=== PATIENT | female | born 1965 | race Caucasian/White ===

== ENCOUNTER 2017-03-19 01:58 | Emergency (ER) | payer SELFPAY ==
[2017-03-19] MEDS ORDERED: HYDROXYZINE PAMOATE 50 MG CAPSULE PO ONE (02:16)
[2017-03-19] MEDS ORDERED: PREDNISONE 20 MG TABLET PO ONE (02:16)
--- NOTE | 2017-03-19 02:18 | ER Document Report ---
ED General - General Chief Complaint: Abscess Stated Complaint: ABSCESS Time Seen by Provider: 03/19/17 02:08 Notes: Patient is a 51-year-old female without any past medical history who presents with a rash that is been present for the past 48 hours. Patient states that this started after something "popped" behind her left ear on the area of the mastoid. She states that subsequent that she has developed a rash over her upper extremities and torso. She states she has a history of this on one prior occasion but cannot recall what diagnosis that was. She denies any fever or constitutional symptoms. She does note that the areas of rash are extremely pruritic, constantly irritating. She has not done to try to improve her symptoms. She has not noted anything that worsens her symptoms. She does not note any new exposures. Denies any medication or drug use. She has not seen a primary care doctor regarding today's concerns. - Related Data Allergies/Adverse Reactions: No Known Allergies Allergy (Unverified 03/19/17 02:03) Past Medical History - General Information source: Patient - Social History Smoking Status: Current Every Day Smoker Frequency of alcohol use: None Drug Abuse: None Family History: Reviewed & Not Pertinent Renal/ Medical History: Denies: Hx Peritoneal Dialysis Review of Systems - Review of Systems Notes: Constitutional: Negative for fever. HENT: Negative for sore throat. Eyes: Negative for visual changes. Cardiovascular: Negative for chest pain. Respiratory: Negative for shortness of breath. Gastrointestinal: Negative for abdominal pain, vomiting or diarrhea. Genitourinary: Negative for dysuria. Musculoskeletal: Negative for back pain. Skin: Positive for rash. Neurological: Negative for headaches, weakness or numbness. 10 point ROS negative except as marked above and in HPI. Physical Exam - Vital signs Interpretation: Normal Notes: PHYSICAL EXAMINATION: GENERAL: Appears uncomfortable but no acute distress HEAD: Atraumatic, normocephalic. EYES: Pupils equal round and reactive to light, extraocular movements intact, sclera anicteric, conjunctiva are normal. ENT: nares patent, oropharynx clear without exudates. Moist mucous membranes. NECK: Normal range of motion, supple without lymphadenopathy LUNGS: Breath sounds clear to auscultation bilaterally and equal. No wheezes rales or rhonchi. HEART: Regular rate and rhythm without murmurs ABDOMEN: Soft, nontender, normoactive bowel sounds. No guarding, no rebound. No masses appreciated. EXTREMITIES: Normal range of motion, no pitting or edema. No cyanosis. NEUROLOGICAL: No focal neurological deficits. Moves all extremities spontaneously and on command. PSYCH: Normal mood, normal affect. SKIN: Warm, Dry, normal turgor, there is diffuse areas of raised, erythematous, cracked skin with some flaking of the superficial skin layer starting behind the left ear over the mastoid and then down the left side of the neck, covering the upper area of the torso above the level of the manubrium bilaterally and then over the bilateral upper extremities mostly located to the forearms and hands. There is extensive cracking of the skin over the dorsal surface of the hands bilaterally. Course - Re-evaluation Re-evalutation: 03/19/17 02:15 Patient presents with diffusely raised, erythematous, cracked skin over her bilateral hands, forearms and over her upper chest as well as behind her left ear. There is [place] no evidence of an abscess anywhere. This appears to be more consistent with either severe eczema or another unspecified autoimmune inflammatory condition of the skin. Patient denies any medications. It is not consistent with Bautista-Meño syndrome or TEN. I do not suspect an acute psoriasis is there are no distinct plaques. Will start on steroids and recommend close outpatient dermatologic follow-up. At this time will discharge with return precautions and follow-up recommendations. Verbal discharge instructions given a the bedside and opportunity for questions given. Medication warnings reviewed. Patient is in agreement with this plan and has verbalized understanding of return precautions and the need for primary care follow-up in the next 24-72 hours. Discharge - Discharge Clinical Impression: Rash and nonspecific skin eruption Condition: Good Disposition: HOME, SELF-CARE Additional Instructions: Please take the steroids as prescribed. Follow-up with a spot checker at your earliest ability. Return if you develop fever, persistent vomiting, pass out, or have any other symptoms that are worrisome to you. Prescriptions: Hydroxyzine HCl [Atarax 50 mg Tablet] 50 mg PO Q8HP PRN #30 tablet PRN Reason: Prednisone [Deltasone 20 mg Tablet] 3 tab PO DAILY 5 Days tablet Triamcinolone Acetonide 80 gm TP TID #80 cream.gm.
== END 2017-03-19 02:52 | disposition home or self-care (01) ==
LOC: ER 01:58
DX: R21 Rash and other nonspecific skin eruption (principal); F17.200 Nicotine dependence, unspecified, uncomplicated
CPT/HCPCS: 99282; J7512

== ENCOUNTER 2017-03-27 12:22 | Inpatient (IN) | payer SELFPAY ==
--- NOTE | 2017-03-27 13:21 | ER Document Report ---
ED Skin Rash/Insect Bite/Abscs - General Chief Complaint: Itching Stated Complaint: ITCHY SKIN Time Seen by Provider: 03/27/17 13:06 Mode of Arrival: Ambulatory Information source: Patient Notes: Patient is a 51-year-old female who presents to the ER today for rash to her upper body that began behind both of her ears, worse on the left. Patient states that she was here on February 17, 8 days ago, and was treated for eczema with steroids and steroid cream, anti-itch medication. Patient states that she has only gotten worse since that time, states that now her ears seem to have pus coming out of them. She ran out of steroid cream and has not put anything else on her skin in a few days. She is not taking any other medications. She denies any recent prescription drugs other than These and denies any recent antibiotics any time within the recent past TRAVEL OUTSIDE OF THE [place] IN LAST 30 DAYS: No - Related Data Allergies/Adverse Reactions: No Known Allergies Allergy (Unverified 03/19/17 02:03) Home Medications: Current Home Medications No Home Medications 03/27/17 [History] Past Medical History - General Information source: Patient - Social History Smoking Status: Unknown if Ever Smoked Chew tobacco use (# tins/day): No Frequency of alcohol use: None Drug Abuse: None Family History: Reviewed & Not Pertinent Patient has suicidal ideation: No Patient has homicidal ideation: No Renal/ Medical History: Denies: Hx Peritoneal Dialysis Surgical Hx: Negative - Immunizations Hx Diphtheria, Pertussis, Tetanus Vaccination: Yes Review of Systems - Review of Systems Constitutional: No symptoms reported EENT: No symptoms reported Cardiovascular: No symptoms reported Respiratory: No symptoms reported Gastrointestinal: No symptoms reported Genitourinary: No symptoms reported Female Genitourinary: No symptoms reported Musculoskeletal: No symptoms reported Skin: See HPI Hematologic/Lymphatic: No symptoms reported Neurological/Psychological: No symptoms reported Physical Exam - Vital signs Vitals: Temp Pulse Resp BP Pulse Ox 98.4 F 133 H 22 H 126/80 H 98 03/27/17 12:46 03/27/17 12:46 03/27/17 12:46 03/27/17 12:46 03/27/17 12:46 - Notes Notes: PHYSICAL EXAMINATION: GENERAL: ill appearing, but in no acute distress. HEAD: Atraumatic, normocephalic. EYES: Pupils equal round and reactive to light, extraocular movements intact, sclera anicteric, conjunctiva are normal. ENT: ear canals with erythema and edema, purulent discharge bilaterally, nares patent, oropharynx clear without exudates. Moist mucous membranes. NECK: Normal range of motion, supple without lymphadenopathy LUNGS: CTAB and equal. No wheezes rales or rhonchi. HEART: Regular rate and rhythm without murmurs EXTREMITIES: Normal range of motion, no pitting edema. No cyanosis. NEUROLOGICAL: Cranial nerves grossly intact. Normal sensory/motor exams. PSYCH: Normal mood, normal affect. SKIN: Warm, Dry, normal turgor, bright erythematous, raw skin to entirety of neck, chest, upper back and upper arms, purulent drainage oozing from left ear canal and pinna with raw skin appearance, descending rash that improves onto abdomen and then groin and thighs but then stops, worse around neck and left ear , including eyelid upper and lower of left eye but not conjunctiva or eyeball, no active sloughing of skin, no vesicles Course - Re-evaluation Re-evalutation: 03/27/17 12:19 My attending, Dr. Coughlin did evaluate the patient with me and we brought it hospitalist, Dr. Bell, who believes that this is scalded staphylococcus rash from a possible abscess patient is reporting that was behind the left ear initially before all of this started. Patient has been admitted, started on IV clindamycin, vancomycin and Zosyn. Blood cultures pending at this time. White count of 14.1. Patient was also given IV Benadryl. IV fluids. - Vital Signs Vital signs: Temp Pulse Resp BP Pulse Ox 97.7 F 74 20 95/54 L 97 03/28/17 04:07 03/28/17 04:07 03/28/17 04:07 03/28/17 04:07 03/28/17 04:07 - Laboratory Result Diagrams: 03/28/17 06:40 03/28/17 06:40 Laboratory results interpreted by me: 03/27/17 03/27/17 13:48 13:48 WBC 14.1 H Absolute Neutrophils 10.1 H Glucose 129 H C-Reactive Protein 33.9 H Discharge - Discharge Clinical Impression: Staphylococcal scalded skin syndrome Condition: Stable Disposition: ADMITTED INPATIENT Admitting Provider: Hospitalist Unit Admitted: Medical Floor
[2017-03-27] MEDS ORDERED: NORMAL SALINE 1000 ML 2,000 ML IV ONE (13:38)
[2017-03-27] MEDS ORDERED: DIPHENHYDRAMINE HCL 50 MG/ML VIAL IV ONE (13:38)
[2017-03-27] MEDS ORDERED: DIAZEPAM INJ 10 MG/2 ML DISP.SYRIN IV ONE (13:38)
[2017-03-27] MEDS ORDERED: NORMAL SALINE 1000 ML 1,000 ML IV PRN ×2 (13:40→14:32)
[2017-03-27 14:07] LABS: ABSOLUTE BASOPHILS # (AUTO) 0.1 10^3/uL (0.0-0.2); ABSOLUTE EOSINOPHILS # (AUTO) 0.3 10^3/uL (0.0-0.6); ABSOLUTE LYMPHOCYTES (AUTO) 2.9 10^3/uL (0.5-4.7); ABSOLUTE MONOCYTES (AUTO) 0.8 10^3/uL (0.1-1.4); ABSOLUTE NEUT (AUTO) 10.1 10^3/uL (1.7-8.2); BASOPHILS % (AUTO) 0.5 % (0-2); EOSINOPHILS % (AUTO) 2.1 % (0-6); HEMATOCRIT 44.2 % (36.0-47.0); HEMOGLOBIN 14.7 g/dL (12.0-15.5); HGB HCT DIFFERENCE -0.1; LYMPHOCYTES % (AUTO) 20.2 % (13-45); MEAN CORPUSCULAR HEMOGLOBIN 30.2 pg (27.0-33.4); MEAN CORPUSCULAR HGB CONC 33.3 g/dL (32.0-36.0); MEAN CORPUSCULAR VOLUME 91 fl (80-97); MONOCYTES % (AUTO) 5.7 % (3-13); RED BLOOD COUNT 4.86 10^6/uL (3.72-5.28); SEGMENTED NEUTROPHILS % (AUTO) 71.5 % (42-78); WHITE BLOOD COUNT 14.1 10^3/uL (4.0-10.5)
[2017-03-27] MEDS ORDERED: CLINDAMYCIN 900 MG/D5W RTU 50 ML IV ONE (14:20)
[2017-03-27] MEDS ORDERED: VANCOMYCIN HCL INJ 1000 MG VIAL IV ONE ×2 (14:20→14:24)
[2017-03-27] MEDS ORDERED: PIPERACILLIN/TAZOBACTAM 3.375 GM VIAL IV ONE (14:20)
[2017-03-27] MEDS ORDERED: ONDANSETRON HCL INJ/PF 4 MG/2 ML SDV IV PRN (14:32)
[2017-03-27] MEDS ORDERED: ACETAMINOPHEN 325 MG TABLET PO PRN (14:32)
[2017-03-27] MEDS ORDERED: MAGNESIUM HYDROXIDE SUSP 30 ML UDCUP PO PRN (14:32)
[2017-03-27] MEDS ORDERED: DOCUSATE SODIUM 100 MG CAPSULE PO PRN (14:32)
[2017-03-27] MEDS ORDERED: MAG HYDROX/AL HYDROX/SIMETH SUSP 30 ML UDCUP PO PRN (14:32)
[2017-03-27 14:34] LABS: ALANINE AMINOTRANSFERASE 31 U/L (9-52); ALBUMIN 3.9 g/dL (3.5-5.0); ALKALINE PHOSPHATASE 65 U/L (38-126); ANION GAP 12 (5-19); ASPARTATE AMINO TRANSFERASE 17 U/L (14-36); BILIRUBIN,DIRECT 0.3 mg/dL (0.0-0.4); BILIRUBIN,TOTAL 0.6 mg/dL (0.2-1.3); BLOOD UREA NITROGEN 12 mg/dL (7-20); C-REACTIVE PROTEIN 33.9 mg/L (<10.0); CALCIUM 9.6 mg/dL (8.4-10.2); CARBON DIOXIDE 25 mmol/L (22-30); CHLORIDE 104 mmol/L (98-107); CREATININE RESULT 0.74 mg/dL (0.52-1.25); GLUCOSE 129 mg/dL (75-110); POTASSIUM 4.1 mmol/L (3.6-5.0); SODIUM 140.9 mmol/L (137-145); TOTAL PROTEIN 6.6 g/dL (6.3-8.2)
[2017-03-27 14:54] LABS: ERYTHROCYTE SEDIMENTATION RATE 17 mm/hr (0-30)
[2017-03-27] MEDS ORDERED: FAMOTIDINE INJ/PF 20 MG/2 ML SDV IV ONE (15:00)
[2017-03-27] MEDS ORDERED: ENOXAPARIN SODIUM INJ 40 MG/0.4 ML DISP.SYRIN SUBCUT ONE (16:00)
[2017-03-27] MEDS ORDERED: PIPERACILLIN SODIUM/TAZOBACTAM 4.5 GM in NORMAL SALINE 100 ML IV SCH (16:15)
[2017-03-27] MEDS ORDERED: VANCOMYCIN HCL 0 MG in DEXTROSE 5%-WATER 250 ML IV NR (16:15)
--- NOTE | 2017-03-27 16:28 | PDOC H&P ---
History of Present Illness Admission Date/PCP: 03/27/17 14:32 History of Present Illness: RONA HOUSE is a 51 year old female with no real past medical history who presented for rash to her upper body that began behind both of her ears, worse on the left. Patient states that she was here on February 17, 8 days ago, and was treated for eczema with steroids and steroid cream, anti-itch medication. Patient states that she has only gotten worse since that time, states that now her ears seem to have pus coming out of them. She ran out of steroid cream and has not put anything else on her skin in a few days. She is not taking any other medications. She denies any recent prescription drugs other than These and denies any recent antibiotics any time within the recent past. Patient reports fever, chills, nausea, and burning sensation of her skin. Past Medical History Medical History: None Past Surgical History Past Surgical History: Reports: Tubal Ligation Social History Smoking Status: Current Every Day Smoker Frequency of Alcohol Use: Social Hx Recreational Drug Use: No Hx Prescription Drug Abuse: No - Advance Directive Resuscitation Status: Full Code Surrogate healthcare decision maker:: Kevon Palumbo, brother Family History Family History: CAD, COPD Parental Family History Reviewed: Yes Children Family History Reviewed: Yes Sibling(s) Family History Reviewed.: Yes Medication/Allergy Home Medications: No Home Medications 03/27/17 Allergies/Adverse Reactions: No Known Allergies Allergy (Unverified 03/19/17 02:03) Review of Systems Constitutional: PRESENT: anorexia, chills, fatigue, fever(s), night sweats, weakness. ABSENT: headache(s), weight gain, weight loss Eyes: ABSENT: visual disturbances Ears: PRESENT: as per HPI. ABSENT: hearing changes Cardiovascular: ABSENT: chest pain, dyspnea on exertion, edema, orthropnea, palpitations Respiratory: PRESENT: cough. ABSENT: hemoptysis, sputum Gastrointestinal: PRESENT: nausea, vomiting. ABSENT: abdominal pain, constipation, diarrhea, hematemesis, hematochezia, melena Genitourinary: ABSENT: dysuria, hematuria Musculoskeletal: ABSENT: joint swelling Integumentary: PRESENT: pruritus, rash, wounds Neurological: ABSENT: abnormal gait, abnormal speech, confusion, dizziness, focal weakness, syncope Psychiatric: ABSENT: anxiety, depression, homidical ideation, suicidal ideation Endocrine: PRESENT: flushing. ABSENT: cold intolerance, heat intolerance, polydipsia, polyuria Hematologic/Lymphatic: ABSENT: easy bleeding, easy bruising Physical Exam Vital Signs: Temp Pulse Resp BP Pulse Ox 98.4 F 133 H 22 H 107/72 95 03/27/17 12:46 03/27/17 12:46 03/27/17 12:46 03/27/17 15:37 03/27/17 15:37 General appearance: PRESENT: severe distress, well-developed, well-nourished Head exam: PRESENT: atraumatic, normocephalic Eye exam: PRESENT: conjunctiva pink, EOMI, periorbital swelling - left eye, PERRLA. ABSENT: scleral icterus Ear exam: PRESENT: drainage, other - external auitory canal swelling Mouth exam: PRESENT: dry mucosa, tongue midline Neck exam: PRESENT: lymphadenopathy. ABSENT: JVD, thyromegaly, tracheal deviation Respiratory exam: PRESENT: clear to auscultation roselyn, symmetrical, tachypnea, unlabored. ABSENT: accessory muscle use, crackles, rales, retraction, rhonchi, wheezes Cardiovascular exam: PRESENT: RRR, +S1, +S2. ABSENT: diastolic murmur, gallop, rubs, systolic murmur Pulses: PRESENT: normal dorsalis pedis pul Vascular exam: PRESENT: normal capillary refill GI/Abdominal exam: PRESENT: normal bowel sounds, soft. ABSENT: distended, firm , guarding, mass, organolmegaly, rebound, rigid, tenderness Rectal exam: PRESENT: deferred Extremities exam: PRESENT: full ROM. ABSENT: calf tenderness, clubbing, pedal edema Neurological exam: PRESENT: alert, awake, oriented to person, oriented to place , oriented to time, oriented to situation, CN II-XII grossly intact. ABSENT: motor sensory deficit Psychiatric exam: PRESENT: appropriate affect, normal mood. ABSENT: homicidal ideation, suicidal ideation Skin exam: PRESENT: rash - Macular confluent erythematous rash with crusting on face, neck, back, abdomen spreading to bilateral inner thighs. ABSENT: cyanosis Results Laboratory Results: 03/27/17 03/27/17 03/27/17 13:48 13:48 13:48 WBC 14.1 H Hgb 14.7 Creatinine 0.74 Glucose 129 H Creatine Kinase 32 C-Reactive Protein 33.9 H Assessment & Plan - Diagnosis (1) Sepsis Qualifiers: Sepsis type: Streptococcus, other Qualified Code(s): A40.8 - Other streptococcal sepsis Is this a current diagnosis for this admission?: Yes Plan: Suspect patient has staphylococcal scalded skin syndrome. Will place patient on vancomycin and clindamycin as well as Zosyn pending cultures. Blood cultures have been obtained. Maintain map greater than 65. (2) Staphylococcal scalded skin syndrome Is this a current diagnosis for this admission?: Yes Plan: Initiate vancomycin and clindamycin as well as Zosyn for this patient. Pepcid and Benadryl for itching. Morphine as needed pain. (3) Tobacco abuse Is this a current diagnosis for this admission?: Yes Plan: Encourage cessation - Time Time Spent: 50 to 70 Minutes Medications reviewed and adjusted accordingly: Yes Anticipated discharge: Home
[2017-03-27 16:37] LABS: APPEARANCE,URINE CLEAR; BILIRUBIN,URINE NEGATIVE (NEGATIVE); GLUCOSE, URINE NEGATIVE (NEGATIVE); KETONES,URINE NEGATIVE (NEGATIVE); LEUKOCYTE ESTERASE,URINE NEGATIVE (NEGATIVE); NITRITE,URINE NEGATIVE (NEGATIVE); PROTEIN,URINE NEGATIVE (NEGATIVE); URINE SPECIFIC GRAVITY 1.003; UROBILINOGEN,URINE NEGATIVE mg/dL (<2.0)
[2017-03-27] MEDS: MORPHINE SULFATE 10 MG/ML INJ IV PRN ×2 (17:53→22:18)
[2017-03-27] MEDS: OXYCODONE-ACETAMINOPHEN 5-325 MG TABLET PO PRN (20:17)
[2017-03-27] MEDS: LACTOBACILLUS ACIDOPHILUS 250 MG TAB PO SCH (20:18)
[2017-03-27] MEDS: CIPROFLOXACIN HCL/DEXAMETH OTIC DROP 7.5 ML AU SCH (20:20)
[2017-03-27] MEDS: VANCOMYCIN HCL 1,000 MG in DEXTROSE 5%-WATER 250 ML IV SCH (22:16)
[2017-03-27] MEDS: CLINDAMYCIN 900 MG/D5W RTU 50 ML IV SCH (22:17)
[2017-03-27] MEDS: FAMOTIDINE INJ/PF 20 MG/2 ML SDV IV SCH (22:18)
[2017-03-27] MEDS: DIPHENHYDRAMINE HCL 50 MG/ML VIAL IV PRN (23:37)
[2017-03-28] MEDS: TRIAMCINOLONE ACETONIDE 0.1% OINT 15 GM TOP SCH ×3 (02:37→17:50)
[2017-03-28] MEDS: HYDROCORTISONE 1% OINTMENT 28.35 GM TP SCH ×3 (02:37→17:49)
[2017-03-28] MEDS: MORPHINE SULFATE 10 MG/ML INJ IV PRN ×2 (04:11→14:39)
[2017-03-28] MEDS: OXYCODONE-ACETAMINOPHEN 5-325 MG TABLET PO PRN ×3 (05:14→22:19)
[2017-03-28] MEDS: CLINDAMYCIN 900 MG/D5W RTU 50 ML IV SCH ×3 (05:15→22:20)
[2017-03-28] MEDS: DIPHENHYDRAMINE HCL 50 MG/ML VIAL IV PRN (05:16)
[2017-03-28 07:15] LABS: ABSOLUTE BASOPHILS # (AUTO) 0.1 10^3/uL (0.0-0.2); ABSOLUTE EOSINOPHILS # (AUTO) 0.7 10^3/uL (0.0-0.6); ABSOLUTE LYMPHOCYTES (AUTO) 3.7 10^3/uL (0.5-4.7); ABSOLUTE MONOCYTES (AUTO) 0.8 10^3/uL (0.1-1.4); ABSOLUTE NEUT (AUTO) 5.2 10^3/uL (1.7-8.2); BASOPHILS % (AUTO) 0.6 % (0-2); EOSINOPHILS % (AUTO) 6.4 % (0-6); HEMATOCRIT 37.8 % (36.0-47.0); HEMOGLOBIN 12.7 g/dL (12.0-15.5); HGB HCT DIFFERENCE 0.3; LYMPHOCYTES % (AUTO) 35.3 % (13-45); MEAN CORPUSCULAR HEMOGLOBIN 31.1 pg (27.0-33.4); MEAN CORPUSCULAR HGB CONC 33.6 g/dL (32.0-36.0); MEAN CORPUSCULAR VOLUME 93 fl (80-97); MONOCYTES % (AUTO) 8.1 % (3-13); RED BLOOD COUNT 4.09 10^6/uL (3.72-5.28); RED CELL DISTRIBUTION WIDTH 13.1 % (11.5-14.0); SEGMENTED NEUTROPHILS % (AUTO) 49.6 % (42-78); WHITE BLOOD COUNT 10.4 10^3/uL (4.0-10.5)
[2017-03-28 07:30] LABS: ANION GAP 10 (5-19); BLOOD UREA NITROGEN 10 mg/dL (7-20); CALCIUM 8.8 mg/dL (8.4-10.2); CARBON DIOXIDE 23 mmol/L (22-30); CHLORIDE 111 mmol/L (98-107); CREATININE RESULT 0.77 mg/dL (0.52-1.25); GLUCOSE 93 mg/dL (75-110); POTASSIUM 4.3 mmol/L (3.6-5.0); SODIUM 143.6 mmol/L (137-145)
[2017-03-28] MEDS ORDERED: DIAZEPAM INJ 10 MG/2 ML DISP.SYRIN IV ONE (10:00)
--- NOTE | 2017-03-28 10:06 | PDOC PROGRESS REPORT ---
Subjective Progress Note for:: 03/28/17 Subjective:: Patient had some nausea but this improved with Pepcid. Patient reports that her rash still march and itches. She does report she feels somewhat better. Patient denies chest pain, shortness of breath, abdominal pain, vomiting, fevers , chills, diarrhea, constipation, headache, new onset weakness. Physical Exam Vital Signs: Temp Pulse Resp BP Pulse Ox 97.7 F 74 20 95/54 L 97 03/28/17 04:07 03/28/17 04:07 03/28/17 04:07 03/28/17 04:07 03/28/17 04:07 Intake & Output 03/27/17 03/28/17 03/29/17 06:59 06:59 06:59 Intake Total 600 Output Total 2150 Balance -1550 Weight 68.4 kg Exam: General: Awake alert and oriented x3, no acute respiratory distress HEENT: AT/NC, PERRL, EOMI, oropharynx is moist, pink, no scleral icterus, no conjunctival injection Neck: No JVD, trachea midline Chest: Prolonged expiratory phase, clear to auscultation bilaterally, no wheezes rhonchi or rales CV: Regular rate and rhythm, normal S1 and S2, no murmur, rub, or gallop Abdomen: Soft, nontender to palpation, nondistended, active bowel sounds; no rebound, rigidity, or guarding Extremities: No cyanosis, clubbing or edema Neuro: Cranial nerves II through XII are grossly intact without focal deficits; awake alert and oriented x3 Psych: Normal mood and affect Skin: Erythematous on diffuse macular papular rash left periorbital, cervical, back, anterior chest, and inner thighs Results Laboratory Results: 03/28/17 06:40 03/28/17 06:40 03/28/17 03/28/17 06:40 06:40 WBC 10.4 RBC 4.09 Hgb 12.7 Hct 37.8 MCV 93 MCH 31.1 MCHC 33.6 RDW 13.1 Plt Count 285 Seg Neutrophils % 49.6 Lymphocytes % 35.3 Monocytes % 8.1 Eosinophils % 6.4 H Basophils % 0.6 Absolute Neutrophils 5.2 Absolute Lymphocytes 3.7 Absolute Monocytes 0.8 Absolute Eosinophils 0.7 H Absolute Basophils 0.1 Sodium 143.6 Potassium 4.3 Chloride 111 H Carbon Dioxide 23 Anion Gap 10 BUN 10 Creatinine 0.77 Est GFR ( Amer) > 60 Est GFR (Non-Af Amer) > 60 Glucose 93 Calcium 8.8 Assessment & Plan - Diagnosis (1) Sepsis Qualifiers: Sepsis type: Streptococcus, other Qualified Code(s): A40.8 - Other streptococcal sepsis Is this a current diagnosis for this admission?: Yes Plan: Suspect patient has staphylococcal scalded skin syndrome or a secondarily infected dermatitis. Will place patient on vancomycin and clindamycin. Blood cultures have been obtained. Maintain map greater than 65. (2) Staphylococcal scalded skin syndrome Is this a current diagnosis for this admission?: Yes Plan: Rash is beginning to peel somewhat, but there is a negative Nikolesky sign. No bullae. Currently, my biggest concern is for this. I did discuss this with Dermatology at [facility] and they felt this was a dermatits with secondary infection. Pepcid and Benadryl for itching. Morphine as needed pain. On vancomycin and clindamycin day #2 (3) Tobacco abuse Is this a current diagnosis for this admission?: Yes Plan: Encourage cessation - Time Time Spent with patient: 25-34 minutes Medications reviewed and adjusted accordingly: Yes
[2017-03-28] MEDS: FAMOTIDINE INJ/PF 20 MG/2 ML SDV IV SCH ×2 (10:41→22:20)
[2017-03-28] MEDS: LACTOBACILLUS ACIDOPHILUS 250 MG TAB PO SCH ×2 (10:41→17:48)
[2017-03-28] MEDS: CIPROFLOXACIN HCL/DEXAMETH OTIC DROP 7.5 ML AU SCH ×2 (10:42→17:50)
[2017-03-28] MEDS: VANCOMYCIN HCL 1,000 MG in DEXTROSE 5%-WATER 250 ML IV SCH ×2 (10:45→22:20)
[2017-03-28] MEDS: ENOXAPARIN SODIUM INJ 40 MG/0.4 ML DISP.SYRIN SUBCUT SCH (11:02)
[2017-03-28] MEDS ORDERED: METHYLPREDNISOLONE INJ 40 MG/1 ML SDV IV ONE (12:00)
[2017-03-28] MEDS: METHYLPREDNISOLONE INJ 40 MG/1 ML SDV IV SCH (22:20)
[2017-03-29] MEDS: OXYCODONE-ACETAMINOPHEN 5-325 MG TABLET PO PRN ×4 (02:58→21:01)
[2017-03-29] MEDS: CLINDAMYCIN 900 MG/D5W RTU 50 ML IV SCH ×3 (06:07→21:00)
[2017-03-29] MEDS: METHYLPREDNISOLONE INJ 40 MG/1 ML SDV IV SCH (06:07)
[2017-03-29] MEDS: DIPHENHYDRAMINE HCL 50 MG/ML VIAL IV PRN (06:14)
[2017-03-29] MEDS: MORPHINE SULFATE 10 MG/ML INJ IV PRN (06:14)
[2017-03-29 06:42] LABS: ABSOLUTE LYMPHOCYTES (AUTO) 0.9 10^3/uL (0.5-4.7); ABSOLUTE MONOCYTES (AUTO) 0.1 10^3/uL (0.1-1.4); BASOPHILS % (AUTO) 0.2 % (0-2); EOSINOPHILS % (AUTO) 0.1 % (0-6); HEMATOCRIT 35.3 % (36.0-47.0); HEMOGLOBIN 11.9 g/dL (12.0-15.5); HGB HCT DIFFERENCE 0.4; LYMPHOCYTES % (AUTO) 10.3 % (13-45); MEAN CORPUSCULAR HEMOGLOBIN 31.1 pg (27.0-33.4); MEAN CORPUSCULAR HGB CONC 33.8 g/dL (32.0-36.0); MEAN CORPUSCULAR VOLUME 92 fl (80-97); MONOCYTES % (AUTO) 0.9 % (3-13); RED BLOOD COUNT 3.83 10^6/uL (3.72-5.28); RED CELL DISTRIBUTION WIDTH 13.1 % (11.5-14.0); SEGMENTED NEUTROPHILS % (AUTO) 88.5 % (42-78); WHITE BLOOD COUNT 9.1 10^3/uL (4.0-10.5)
[2017-03-29 06:48] LABS: ANION GAP 10 (5-19); BLOOD UREA NITROGEN 9 mg/dL (7-20); CALCIUM 9.3 mg/dL (8.4-10.2); CARBON DIOXIDE 23 mmol/L (22-30); CHLORIDE 109 mmol/L (98-107); CREATININE RESULT 0.53 mg/dL (0.52-1.25); GLUCOSE 140 mg/dL (75-110); POTASSIUM 4.4 mmol/L (3.6-5.0); SODIUM 142.2 mmol/L (137-145)
[2017-03-29] MEDS: LACTOBACILLUS ACIDOPHILUS 250 MG TAB PO SCH ×2 (09:27→16:49)
[2017-03-29] MEDS: PREDNISONE 20 MG TABLET PO SCH (09:27)
[2017-03-29] MEDS: CIPROFLOXACIN HCL/DEXAMETH OTIC DROP 7.5 ML AU SCH ×2 (09:28→17:09)
[2017-03-29] MEDS: FAMOTIDINE INJ/PF 20 MG/2 ML SDV IV SCH ×2 (09:28→21:00)
[2017-03-29] MEDS: HYDROCORTISONE 1% OINTMENT 28.35 GM TP SCH ×2 (09:29→17:09)
[2017-03-29] MEDS: TRIAMCINOLONE ACETONIDE 0.1% OINT 15 GM TOP SCH ×2 (09:29→17:09)
[2017-03-29] MEDS: ENOXAPARIN SODIUM INJ 40 MG/0.4 ML DISP.SYRIN SUBCUT SCH (09:31)
[2017-03-29] MEDS: DIAZEPAM 5 MG TABLET PO PRN ×2 (09:33→17:09)
[2017-03-29] MEDS: VANCOMYCIN HCL 1,000 MG in DEXTROSE 5%-WATER 250 ML IV SCH ×2 (09:40→17:08)
[2017-03-29] MEDS ORDERED: DOXYCYCLINE HYCLATE 100 MG TABLET PO SCH (10:00)
--- NOTE | 2017-03-29 17:55 | PDOC PROGRESS REPORT ---
Subjective Progress Note for:: 03/29/17 Subjective:: Overall the patient states that she is feeling much better. She states that her rash is improving and that the pain in her ears and from her rash is improving as well. She has had no fever chills overnight. No chest pain, shortness of breath or heart palpitations. No nausea or vomiting. Her appetite is improving. No abdominal pain or diarrhea. No dysuria, frequency or hematuria. Physical Exam Vital Signs: Temp Pulse Resp BP Pulse Ox 97.8 F 65 16 110/72 97 03/29/17 07:49 03/29/17 07:49 03/29/17 07:49 03/29/17 07:49 03/29/17 07:49 Intake & Output 03/28/17 03/29/17 03/30/17 06:59 06:59 06:59 Intake Total 600 1650 Output Total 2150 3600 Balance -1550 -1950 Weight 68.4 kg 65.6 kg General appearance: PRESENT: no acute distress, well-developed, well-nourished Head exam: PRESENT: atraumatic, normocephalic Eye exam: PRESENT: conjunctiva pink, EOMI, PERRLA. ABSENT: scleral icterus Mouth exam: PRESENT: moist, tongue midline Respiratory exam: PRESENT: clear to auscultation roselyn. ABSENT: rales, rhonchi, wheezes Cardiovascular exam: PRESENT: RRR. ABSENT: diastolic murmur, rubs, systolic murmur GI/Abdominal exam: PRESENT: normal bowel sounds, soft. ABSENT: distended, guarding, mass, organolmegaly, rebound, tenderness Rectal exam: PRESENT: deferred Extremities exam: PRESENT: full ROM. ABSENT: calf tenderness, clubbing, pedal edema Neurological exam: PRESENT: alert, awake, oriented to person, oriented to place , oriented to time, oriented to situation, CN II-XII grossly intact. ABSENT: motor sensory deficit Psychiatric exam: PRESENT: appropriate affect, normal mood. ABSENT: homicidal ideation, suicidal ideation Skin exam: PRESENT: other - She still has significant rash over her chest arms upper thighs and abdomen. Her left ear and face seems to be resolving. Results Laboratory Results: 03/29/17 06:00 03/29/17 06:00 03/29/17 03/29/17 06:00 06:00 WBC 9.1 RBC 3.83 Hgb 11.9 L Hct 35.3 L MCV 92 MCH 31.1 MCHC 33.8 RDW 13.1 Plt Count 301 Seg Neutrophils % 88.5 H Lymphocytes % 10.3 L Monocytes % 0.9 L Eosinophils % 0.1 Basophils % 0.2 Absolute Neutrophils 8.0 Absolute Lymphocytes 0.9 Absolute Monocytes 0.1 Absolute Eosinophils 0.0 Absolute Basophils 0.0 Sodium 142.2 Potassium 4.4 Chloride 109 H Carbon Dioxide 23 Anion Gap 10 BUN 9 Creatinine 0.53 Est GFR ( Amer) > 60 Est GFR (Non-Af Amer) > 60 Glucose 140 H Calcium 9.3 Assessment & Plan - Diagnosis (1) Staphylococcal scalded skin syndrome Is this a current diagnosis for this admission?: Yes Plan: Continue IV clindamycin and IV vancomycin. She is on a probiotic at this point. She is improving. She will also continue steroids. I am going to stop her IV Solu-Medrol and place her on p.o. prednisone today. (2) Dermatitis Plan: We will change her to oral steroids today and see how she does. (3) Tobacco abuse Is this a current diagnosis for this admission?: Yes Plan: Certainly would be in her best interest at this point to quit smoking. (4) Sepsis Qualifiers: Sepsis type: Streptococcus, other Qualified Code(s): A40.8 - Other streptococcal sepsis Is this a current diagnosis for this admission?: Yes Plan: Ruled out. I do not believe the patient had a septic picture. Certainly she had a significant rash with superimposed infection. She had mild leukocytosis but had been on steroids as an outpatient. She was not febrile or hypotensive. (5) Leukocytosis Plan: Likely secondary to steroids. - Time Time Spent with patient: 25-34 minutes - Inpatient Certification Medical Necessity: Need for IV Antibiotics, Other - The patient needs close monitoring in the hospital. She has a significant rash with superimposed infection requiring parenteral antibiotics and steroids. Timing of disposition will be determined by her clinical course.
[2017-03-30] MEDS: VANCOMYCIN HCL 1,000 MG in DEXTROSE 5%-WATER 250 ML IV SCH ×2 (02:02→09:34)
[2017-03-30] MEDS: OXYCODONE-ACETAMINOPHEN 5-325 MG TABLET PO PRN ×4 (02:02→21:15)
[2017-03-30] MEDS: CLINDAMYCIN 900 MG/D5W RTU 50 ML IV SCH (05:04)
[2017-03-30] MEDS: DIAZEPAM 5 MG TABLET PO PRN ×3 (05:05→21:15)
[2017-03-30] MEDS: DIPHENHYDRAMINE HCL 50 MG/ML VIAL IV PRN (05:05)
[2017-03-30 06:13] LABS: ABSOLUTE BASOPHILS # (AUTO) 0.1 10^3/uL (0.0-0.2); ABSOLUTE MONOCYTES (AUTO) 0.9 10^3/uL (0.1-1.4); ABSOLUTE NEUT (AUTO) 11.3 10^3/uL (1.7-8.2); BASOPHILS % (AUTO) 0.4 % (0-2); HEMATOCRIT 32.5 % (36.0-47.0); HGB HCT DIFFERENCE 0.5; MEAN CORPUSCULAR HEMOGLOBIN 31.1 pg (27.0-33.4); MEAN CORPUSCULAR HGB CONC 33.8 g/dL (32.0-36.0); MEAN CORPUSCULAR VOLUME 92 fl (80-97); MONOCYTES % (AUTO) 5.8 % (3-13); RED BLOOD COUNT 3.53 10^6/uL (3.72-5.28); RED CELL DISTRIBUTION WIDTH 13.6 % (11.5-14.0); SEGMENTED NEUTROPHILS % (AUTO) 73.8 % (42-78); WHITE BLOOD COUNT 15.3 10^3/uL (4.0-10.5)
[2017-03-30 06:41] LABS: ANION GAP 9 (5-19); BLOOD UREA NITROGEN 12 mg/dL (7-20); CARBON DIOXIDE 24 mmol/L (22-30); CHLORIDE 112 mmol/L (98-107); CREATININE RESULT 0.62 mg/dL (0.52-1.25); GLUCOSE 107 mg/dL (75-110); POTASSIUM 3.9 mmol/L (3.6-5.0); SODIUM 144.7 mmol/L (137-145)
[2017-03-30] MEDS: ENOXAPARIN SODIUM INJ 40 MG/0.4 ML DISP.SYRIN SUBCUT SCH (09:26)
[2017-03-30] MEDS: LACTOBACILLUS ACIDOPHILUS 250 MG TAB PO SCH ×2 (09:29→17:50)
[2017-03-30] MEDS: CIPROFLOXACIN HCL/DEXAMETH OTIC DROP 7.5 ML AU SCH ×2 (09:29→17:52)
[2017-03-30] MEDS: PREDNISONE 20 MG TABLET PO SCH (09:30)
[2017-03-30] MEDS: TRIAMCINOLONE ACETONIDE 0.1% OINT 15 GM TOP SCH ×2 (09:31→17:51)
[2017-03-30] MEDS: FAMOTIDINE INJ/PF 20 MG/2 ML SDV IV SCH ×2 (09:31→21:14)
[2017-03-30] MEDS: HYDROCORTISONE 1% OINTMENT 28.35 GM TP SCH ×2 (09:31→17:51)
--- NOTE | 2017-03-30 09:58 | PDOC PROGRESS REPORT ---
Subjective Progress Note for:: 03/30/17 Subjective:: This morning the patient tells me that she had a very difficult night. She states that about 10 PM last night she began to develop crampy abdominal pain and distention. She feels quite bloated. This morning she had a large loose stool. She states she continues to have crampy abdominal pain and just feels sick. She states she also felt like she had some fever and chills overnight. She has had no chest pain, shortness of breath or heart palpitations. No cough or upper respiratory symptoms. No dysuria, frequency or hematuria. In regards to her skin she states that her rash continues to improve. She states she is having some pain around her ears but otherwise greatly improved. Physical Exam Vital Signs: Temp Pulse Resp BP Pulse Ox 98.4 F 60 18 110/63 100 03/30/17 07:52 03/30/17 07:52 03/30/17 07:52 03/30/17 07:52 03/30/17 07:52 Intake & Output 03/29/17 03/30/17 03/31/17 06:59 06:59 06:59 Intake Total 1650 7374 Output Total 3600 2500 Balance -1950 4874 Weight 65.6 kg 65.7 kg General appearance: PRESENT: no acute distress, well-developed, well-nourished, other - She does look as if she does not feel well this morning Head exam: PRESENT: atraumatic, normocephalic Eye exam: PRESENT: conjunctiva pink, EOMI, PERRLA. ABSENT: scleral icterus Mouth exam: PRESENT: moist, tongue midline Respiratory exam: PRESENT: clear to auscultation roselyn. ABSENT: rales, rhonchi, wheezes Cardiovascular exam: PRESENT: RRR. ABSENT: diastolic murmur, rubs, systolic murmur GI/Abdominal exam: PRESENT: distended, hyperactive bowel sounds, soft, tenderness. ABSENT: guarding, rebound, rigid Rectal exam: PRESENT: deferred Extremities exam: PRESENT: full ROM. ABSENT: calf tenderness, clubbing, pedal edema Musculoskeletal exam: PRESENT: ambulatory Neurological exam: PRESENT: alert, awake, oriented to person, oriented to place , oriented to time, oriented to situation, CN II-XII grossly intact. ABSENT: motor sensory deficit Psychiatric exam: PRESENT: appropriate affect, normal mood. ABSENT: homicidal ideation, suicidal ideation Skin exam: PRESENT: other - She continues to look as if she has a sunburn with a fine rash. There is no open areas or weeping. The rash on her face and ear has almost totally resolved. Results Laboratory Results: 03/30/17 05:39 03/30/17 05:39 03/30/17 03/30/17 05:39 05:39 WBC 15.3 H RBC 3.53 L Hgb 11.0 L Hct 32.5 L MCV 92 MCH 31.1 MCHC 33.8 RDW 13.6 Plt Count 297 Seg Neutrophils % 73.8 Lymphocytes % 20.0 Monocytes % 5.8 Eosinophils % 0.0 Basophils % 0.4 Absolute Neutrophils 11.3 H Absolute Lymphocytes 3.0 Absolute Monocytes 0.9 Absolute Eosinophils 0.0 Absolute Basophils 0.1 Sodium 144.7 Potassium 3.9 Chloride 112 H Carbon Dioxide 24 Anion Gap 9 BUN 12 Creatinine 0.62 Est GFR ( Amer) > 60 Est GFR (Non-Af Amer) > 60 Glucose 107 Calcium 9.0 Magnesium 2.0 Assessment & Plan - Diagnosis (1) Staphylococcal scalded skin syndrome Is this a current diagnosis for this admission?: Yes Plan: Today I am going to stop her parenteral antibiotics. Her IV vancomycin and clindamycin will be stopped. She will be placed on p.o. clindamycin. (2) Dermatitis Plan: She was transitioned to p.o. prednisone yesterday. Continue 60 mg daily. (3) Abdominal pain Plan: The patient is having crampy abdominal pain and states she had a loose stool this morning.I will test her stool for C. difficile. We will follow-up with those results. Also due to her abdominal distention we will obtain an abdominal film. (4) Tobacco abuse Is this a current diagnosis for this admission?: Yes Plan: Certainly would be in her best interest to quit smoking. (5) Sepsis Qualifiers: Sepsis type: Streptococcus, other Qualified Code(s): A40.8 - Other streptococcal sepsis Is this a current diagnosis for this admission?: Yes Plan: Ruled out. I do not believe the patient had a septic picture. Certainly she had a significant rash with superimposed infection. She had mild leukocytosis but had been on steroids as an outpatient. She was not febrile or hypotensive. (6) Leukocytosis Plan: The patient has been on high-dose steroids. However she does have significant worsening today crampy abdominal pain and loose stool. Hopefully she will not develop further diarrhea. I am going to test her stool for Clostridium difficile. We are going to transition her to oral antibiotics for her skin infection will see how she does today in follow-up with these results. Her worsening leukocytosis could certainly be due to the steroids she has been receiving. However the patient states that she felt as if she had fever and shaking chills overnight. I will repeat a CBC this morning. (7) Anemia Plan: The patient has had a precipitous drop in hemoglobin. This is likely secondary to hemodilution. I will repeat H&H this morning just to make sure it is not dropped further in light of her worsening abdominal pain. She will have a CBC drawn in the morning. - Time Time Spent with patient: 25-34 minutes - Inpatient Certification Medical Necessity: Other - Inpatient hospitalization remains necessary. I would like to successfully transition the patient over to an oral regimen of antibiotics and steroids prior to discharge. This patient does not have good outpatient follow-up. [facility] Also the patient is developing abdominal pain today and has some distention and loose stools. This needs to be looked into prior to discharge.
[2017-03-30 10:02] LABS: CREATININE RESULT 0.67 mg/dL (0.52-1.25)
[2017-03-30 10:17] LABS: ABSOLUTE LYMPHOCYTES (AUTO) 3.3 10^3/uL (0.5-4.7); ABSOLUTE MONOCYTES (AUTO) 0.9 10^3/uL (0.1-1.4); ABSOLUTE NEUT (AUTO) 10.8 10^3/uL (1.7-8.2); BASOPHILS % (AUTO) 0.2 % (0-2); HEMATOCRIT 35.1 % (36.0-47.0); HEMOGLOBIN 11.6 g/dL (12.0-15.5); HGB HCT DIFFERENCE -0.3; MEAN CORPUSCULAR HEMOGLOBIN 30.7 pg (27.0-33.4); MEAN CORPUSCULAR HGB CONC 33.1 g/dL (32.0-36.0); MEAN CORPUSCULAR VOLUME 93 fl (80-97); RED BLOOD COUNT 3.79 10^6/uL (3.72-5.28); RED CELL DISTRIBUTION WIDTH 13.5 % (11.5-14.0); SEGMENTED NEUTROPHILS % (AUTO) 71.8 % (42-78); WHITE BLOOD COUNT 15.1 10^3/uL (4.0-10.5)
[2017-03-30] MEDS ORDERED: ONDANSETRON HCL INJ/PF 4 MG/2 ML SDV IV PRN (10:30)
--- NOTE | 2017-03-30 10:59 | RADIOLOGY REPORT (SQ) ---
EXAM DESCRIPTION: ACUTE ABDOMEN SERIES COMPLETED DATE/TIME: 03/30/2017 10:27 am REASON FOR STUDY: abdominal pain COMPARISON: None. NUMBER OF VIEWS: Three views. TECHNIQUE: Frontal chest, supine abdomen and upright abdomen radiographic images acquired. LIMITATIONS: None. FINDINGS: CHEST: Lungs clear of infiltrates. FREE AIR: None. No abnormal gas collections. BOWEL GAS PATTERN: Nonobstructive pattern. No dilated loops or air fluid levels. CALCIFICATIONS: No suspicious calcifications. HARDWARE: None in the abdomen. SOFT TISSUES: No gross mass or suggestion of organomegaly. BONES: No acute fracture. No worrisome bone lesions. OTHER: No other significant finding. IMPRESSION: NO RADIOGRAPHIC EVIDENCE FOR ACUTE ABDOMINAL DISEASE. TECHNICAL DOCUMENTATION: JOB ID: [id number] [employer]- All Rights Reserved
[2017-03-30] MEDS ORDERED: MAGNESIUM HYDROXIDE SUSP 30 ML UDCUP PO PRN (11:00)
[2017-03-30] MEDS ORDERED: MAG HYDROX/AL HYDROX/SIMETH SUSP 30 ML UDCUP PO PRN (11:00)
[2017-03-30] MEDS ORDERED: CLINDAMYCIN HCL 150 MG CAPSULE PO SCH (12:00)
[2017-03-30] MEDS: CLINDAMYCIN HCL 150 MG CAPSULE PO SCH ×2 (13:22→17:51)
[2017-03-31] MEDS: CLINDAMYCIN HCL 150 MG CAPSULE PO SCH ×2 (01:15→06:59)
[2017-03-31] MEDS: ENOXAPARIN SODIUM INJ 40 MG/0.4 ML DISP.SYRIN SUBCUT SCH (10:49)
[2017-03-31] MEDS: CIPROFLOXACIN HCL/DEXAMETH OTIC DROP 7.5 ML AU SCH (10:49)
[2017-03-31] MEDS: TRIAMCINOLONE ACETONIDE 0.1% OINT 15 GM TOP SCH (10:50)
[2017-03-31] MEDS: OXYCODONE-ACETAMINOPHEN 5-325 MG TABLET PO PRN (10:50)
[2017-03-31] MEDS: HYDROCORTISONE 1% OINTMENT 28.35 GM TP SCH (10:50)
[2017-03-31] MEDS: LACTOBACILLUS ACIDOPHILUS 250 MG TAB PO SCH (10:51)
[2017-03-31] MEDS: FAMOTIDINE INJ/PF 20 MG/2 ML SDV IV SCH (10:52)
[2017-03-31] MEDS: PREDNISONE 20 MG TABLET PO SCH (10:52)
--- NOTE | 2017-03-31 11:47 | PDOC DISCHARGE SUMMARY ---
General - Admit/Disc Date/PCP Admission Date/Primary Care Provider: 03/27/17 14:32 She will establish care at the [facility]. Discharge Date: 03/31/17 - Discharge Diagnosis (1) Staphylococcal scalded skin syndrome Is this a current diagnosis for this admission?: Yes Summary: Improved. She was maintained on 900 mg of IV clindamycin and IV vancomycin. She was successfully transitioned over to p.o. clindamycin the day before discharge. She is significantly improved. (2) Dermatitis Summary: She will be given a prescription for triamcinolone cream. (3) Abdominal pain Summary: Likely secondary to antibiotics. The patients pain is much improved on the day of discharge. (4) Tobacco abuse Is this a current diagnosis for this admission?: Yes Summary: She is encouraged to quit smoking. (5) Sepsis Is this a current diagnosis for this admission?: Yes Summary: I do not believe she had a septic picture at the time of admission. She certainly had a significant rash with superimposed infection. She had mild leukocytosis but had also been on steroids as an outpatient. She was not febrile or hypotensive. (6) Leukocytosis Summary: Likely secondary to high-dose steroids. (7) Anemia Summary: The patient had a precipitous drop in hemoglobin after admission likely secondary to hemodilution. Her hemoglobin is stable on the day of discharge. - Additional Information Resuscitation Status: Full Code Discharge Diet: Regular Discharge Activity: Activity As Tolerated, Balance Activity w/Rest, Slowly Increase Activity Home Medications: Ciprofloxacin HCl/Dexameth [Ciprodex Otic Suspension 7.5 ml Bottle] 1 drop AU BID bottle 03/31/17 Clindamycin HCl 450 mg PO Q6H #84 capsule 03/31/17 Prednisone See Protocol PO DAILY #21 tablet 03/31/17 Triamcinolone Acetonide [Aristocort 0.1% Ointment] 1 applic TOP BID #1 tube History of Present Illness History of Present Illness: RONA HOUSE is a 51 year old female who presented to the emergency room with worsening rash Hospital Course Hospital Course: She had been treated as an outpatient 8 days prior to admission for eczema with steroids and steroid cream as well as anti-itch medication. The patient continued to worsen. She reported fever and chills at home and a burning sensation on her skin. The admitting physician suspected staphylococcal scalded skin syndrome and admitted the patient to the hospital and placed her on high-dose IV clindamycin and vancomycin. Blood cultures were obtained which remained negative. Initially there were some concerns that she may be developing sepsis but I do believe as mentioned above this is been ruled out. She also was started on high-dose steroids for her underlying dermatitis. Over the next several days the patient greatly improved. She was transitioned over to an oral regimen and was stable. She was kept in the hospital an additional day due to concerns that she may be developing diarrhea. She had some abdominal pain and a loose stool but no larry diarrhea. On the day of discharge she is feeling quite well. She is going to establish care at the [facility]. I have consulted discharge planning for medication assistance. At this point maximum hospital benefits been reached. The patient will be discharged home today in stable condition Physical Exam Vital Signs: Temp Pulse Resp BP Pulse Ox 97.5 F 63 18 133/79 H 97 03/31/17 07:16 03/31/17 07:16 03/31/17 07:16 03/31/17 07:16 03/31/17 07:16 Intake & Output 03/30/17 03/31/17 04/01/17 06:59 06:59 06:59 Intake Total 7374 1930 Output Total 2500 3100 Balance 4874 -1170 Weight 65.7 kg 65.6 kg General appearance: PRESENT: no acute distress, well-developed, well-nourished Head exam: PRESENT: atraumatic, normocephalic Eye exam: PRESENT: conjunctiva pink, EOMI, PERRLA. ABSENT: scleral icterus Ear exam: PRESENT: normal external ear exam Mouth exam: PRESENT: moist, tongue midline Neck exam: ABSENT: carotid bruit, JVD, lymphadenopathy, thyromegaly Respiratory exam: PRESENT: clear to auscultation roselyn. ABSENT: rales, rhonchi, wheezes Cardiovascular exam: PRESENT: RRR. ABSENT: diastolic murmur, rubs, systolic murmur Pulses: PRESENT: normal dorsalis pedis pul GI/Abdominal exam: PRESENT: normal bowel sounds, soft. ABSENT: distended, guarding, mass, organolmegaly, rebound, tenderness Rectal exam: PRESENT: deferred Extremities exam: PRESENT: full ROM. ABSENT: calf tenderness, clubbing, pedal edema Neurological exam: PRESENT: alert, awake, oriented to person, oriented to place , oriented to time, oriented to situation, CN II-XII grossly intact. ABSENT: motor sensory deficit Psychiatric exam: PRESENT: appropriate affect, normal mood. ABSENT: homicidal ideation, suicidal ideation Skin exam: PRESENT: other - Rash is improving. Results Laboratory Results: 03/30/17 09:46 03/30/17 09:46 Impressions: Acute Abdomen Series 03/30/17 00:00 IMPRESSION: NO RADIOGRAPHIC EVIDENCE FOR ACUTE ABDOMINAL DISEASE. Qualifiers PATEINT BEING DISCHARGED WITH ANY OF THE FOLLOWING DIAGNOSIS?: No Plan Time Spent: Greater than 30 Minutes
[2017-03-31 11:52] VITALS: BP 144/49
== END 2017-03-31 12:33 | disposition home or self-care (01) | DRG 596 ==
LOC: ER 12:22 → EH 14:32 → UNDOADMIN 15:18 → 2N 16:58 → 4W 03-28 09:43
DX: L00 Staphylococcal scalded skin syndrome (principal); L49.0 Exfoliation due to erythematous condition involving less than 10 percent of body surface; F17.210 Nicotine dependence, cigarettes, uncomplicated; D72.829 Elevated white blood cell count, unspecified; T38.0X5A Adverse effect of glucocorticoids and synthetic analogues, initial encounter; D64.9 Anemia, unspecified; L30.9 Dermatitis, unspecified; Z79.899 Other long term (current) drug therapy; Z83.6 Family history of other diseases of the respiratory system; Z82.49 Family history of ischemic heart disease and other diseases of the circulatory system
CPT/HCPCS: 36415; 74022; 80048; 80053; 80202; 81001; 82550; 82565; 83036; 83735; 85025; 85652; 86140; 87040; 87493; 96361; 96374; 96375; 99284; J1200; J1650; J2270; J2405; J2543; J2920; J3360; J3370; J3490; J7030; J7060; J7512; S0028

== ENCOUNTER 2017-04-16 19:43 | Emergency (ER) | payer SELFPAY ==
[2017-04-16] MEDS ORDERED: ASPIRIN 81 MG TABLET, CHEWABLE PO ONE (20:27)
--- NOTE | 2017-04-16 20:27 | ER Document Report ---
ED Medical Screen (RME) - General Chief Complaint: Skin Problem Stated Complaint: POSSIBLE RASH Time Seen by Provider: 04/16/17 20:14 TRAVEL OUTSIDE OF THE [place] IN LAST 30 DAYS: No - HPI Notes: 04/16/17 20:22 Patient is a 51-year-old female who presents the ED with a generalized rash that is pruritic since her discharge from the hospital on March 31. Patient was discharged on steroids. Patient states that the rash continues to be the same without any improvement and is also in her scalp. Patient is also complaining of chest tightness 1 day without any injury. Patient is not sure of anything that worsens the pain or improves it. She states that she does have a cough that is semi-productive. Denies any headache , fever, head injury, neck pain, URI, sore throat, palpitations, syncope, cough , shortness of breath, wheeze, dyspnea, abdominal pain, nausea/vomiting, urinary retention, dysuria, hematuria. I have treated and performed a rapid initial assessment of this patient. A comprehensive ED assessment and evaluation of the patient, analysis of test results and completion of medical decision making process will be conducted by additional ED providers. PHYSICAL EXAMINATION: GENERAL: Well-appearing, well-nourished and in no acute distress. Chest: non-tender. equal rise/fall. LUNGS: Breath sounds clear to auscultation bilaterally and equal. No wheezes rales or rhonchi. HEART: Regular rate and rhythm without murmurs, rubs, gallops. PSYCH: Normal mood, normal affect. SKIN: widespread generalized rash, dry, flaky, somewhat consistent with a dermatitis and possible seborrheic dermatitis of the scalp. rash is warm, no purulent discharge or abscess noted. - Related Data Allergies/Adverse Reactions: No Known Allergies Allergy (Unverified 03/19/17 02:03) Past Medical History Renal/ Medical History: Denies: Hx Peritoneal Dialysis Psychiatric Medical History: Denies: Hx Depression Past Surgical History: Reports: Hx Tubal Ligation - Immunizations Hx Diphtheria, Pertussis, Tetanus Vaccination: Yes History of Influenza Vaccine for 03/2017 - 08/2017 Season: Refused Physical Exam - Vital signs Vitals: Temp Pulse Resp BP Pulse Ox 98.3 F 93 16 119/75 98 04/16/17 19:57 04/16/17 19:57 04/16/17 19:57 04/16/17 19:57 04/16/17 19:57 Course - Vital Signs Vital signs: Temp Pulse Resp BP Pulse Ox 98.3 F 93 16 119/75 98 04/16/17 19:57 04/16/17 19:57 04/16/17 19:57 04/16/17 19:57 04/16/17 19:57
[2017-04-16 21:09] LABS: ABSOLUTE EOSINOPHILS # (AUTO) 0.5 10^3/uL (0.0-0.6); ABSOLUTE LYMPHOCYTES (AUTO) 3.2 10^3/uL (0.5-4.7); ABSOLUTE MONOCYTES (AUTO) 0.6 10^3/uL (0.1-1.4); ABSOLUTE NEUT (AUTO) 3.3 10^3/uL (1.7-8.2); BASOPHILS % (AUTO) 0.4 % (0-2); EOSINOPHILS % (AUTO) 6.9 % (0-6); HEMATOCRIT 40.6 % (36.0-47.0); HEMOGLOBIN 13.7 g/dL (12.0-15.5); HGB HCT DIFFERENCE 0.5; LYMPHOCYTES % (AUTO) 41.9 % (13-45); MEAN CORPUSCULAR HEMOGLOBIN 30.9 pg (27.0-33.4); MEAN CORPUSCULAR HGB CONC 33.9 g/dL (32.0-36.0); MEAN CORPUSCULAR VOLUME 91 fl (80-97); MONOCYTES % (AUTO) 7.4 % (3-13); RED BLOOD COUNT 4.45 10^6/uL (3.72-5.28); RED CELL DISTRIBUTION WIDTH 13.7 % (11.5-14.0); SEGMENTED NEUTROPHILS % (AUTO) 43.4 % (42-78); WHITE BLOOD COUNT 7.7 10^3/uL (4.0-10.5)
[2017-04-16 21:25] LABS: BILIRUBIN,URINE NEGATIVE (NEGATIVE); GLUCOSE, URINE NEGATIVE (NEGATIVE); KETONES,URINE NEGATIVE (NEGATIVE); LEUKOCYTE ESTERASE,URINE SMALL (NEGATIVE); NITRITE,URINE POSITIVE (NEGATIVE); PROTEIN,URINE NEGATIVE (NEGATIVE); UROBILINOGEN,URINE NEGATIVE mg/dL (<2.0)
[2017-04-16 21:26] LABS: APPEARANCE,URINE SLIGHTLY HAZY
[2017-04-16 21:27] LABS: ALANINE AMINOTRANSFERASE 34 U/L (9-52); ALBUMIN 4.1 g/dL (3.5-5.0); ALKALINE PHOSPHATASE 70 U/L (38-126); ANION GAP 10 (5-19); ASPARTATE AMINO TRANSFERASE 24 U/L (14-36); BILIRUBIN,DIRECT 0.3 mg/dL (0.0-0.4); BILIRUBIN,TOTAL 0.4 mg/dL (0.2-1.3); BLOOD UREA NITROGEN 11 mg/dL (7-20); CALCIUM 9.9 mg/dL (8.4-10.2); CARBON DIOXIDE 24 mmol/L (22-30); CHLORIDE 108 mmol/L (98-107); CREATINE KINASE < 20 U/L (30-135); CREATININE RESULT 0.63 mg/dL (0.52-1.25); GLUCOSE 89 mg/dL (75-110); POTASSIUM 4.4 mmol/L (3.6-5.0); SODIUM 142.4 mmol/L (137-145); TOTAL PROTEIN 6.5 g/dL (6.3-8.2)
--- NOTE | 2017-04-16 21:36 | RADIOLOGY REPORT (SQ) ---
EXAM DESCRIPTION: CHEST SINGLE VIEW COMPLETED DATE/TIME: 04/16/2017 9:28 pm REASON FOR STUDY: chest pain, cough COMPARISON: 03/30/2017. EXAM PARAMETERS: NUMBER OF VIEWS: One view. TECHNIQUE: Single frontal radiographic view of the chest acquired. RADIATION DOSE: NA LIMITATIONS: None. FINDINGS: LUNGS AND PLEURA: No opacities, masses or pneumothorax. No pleural effusion. MEDIASTINUM AND HILAR STRUCTURES: No masses. Contour normal. HEART AND VASCULAR STRUCTURES: Heart normal in size. Normal vasculature. BONES: No acute findings. HARDWARE: None in the chest. OTHER: No other significant finding. IMPRESSION: NO ACUTE RADIOGRAPHIC FINDING IN THE CHEST. TECHNICAL DOCUMENTATION: JOB ID: [id number]
[2017-04-16 21:38] LABS: CREATINE KINASE MB 0.27 ng/mL (<4.55)
[2017-04-16 21:39] LABS: TROPONIN I < 0.012 ng/mL
[2017-04-16] MEDS ORDERED: CEFTRIAXONE 1 GM/D5W RTU 1 GM/50 ML RTUPB IV ONE (21:54)
[2017-04-16] MEDS ORDERED: METHYLPREDNISOLONE INJ 125 MG/2 ML SDV IV ONE (21:54)
[2017-04-16] MEDS ORDERED: FAMOTIDINE INJ/PF 20 MG/2 ML SDV IV ONE (22:31)
[2017-04-16] MEDS ORDERED: CIPROFLOXACIN HCL 500 MG TABLET PO ONE (22:32)
--- NOTE | 2017-04-16 22:49 | ER Document Report ---
ED General - General Chief Complaint: Skin Problem Stated Complaint: POSSIBLE RASH Time Seen by Provider: 04/16/17 20:14 Mode of Arrival: Ambulatory Information source: Patient Notes: Patient presents complaining of painful burning rash to scalp, trunk and extremities. Patient states that she was recently admitted earlier this month for this problem. Patient states she got home on steroids and antibiotics and that her rash had resolved, although after stopping the steroid medication her rash started to return 4 days ago. Patient complains of chest tightness that she said started around 4:00 yesterday. Patient denies any difficulty breathing. Patient without any personal history of any heart disease. Patient denies any fever. Patient does complain of diarrhea that she has been having for the past week. Patient denies any blood in her stool. Patient does acknowledge that this rash symptoms have been causing her a lot of stress and she is uncertain if her chest pain symptoms may be related to stress or the fact that the rash is painful. TRAVEL OUTSIDE OF THE [place] IN LAST 30 DAYS: No - HPI Onset: Just prior to arrival - 4 days (rash returned) Onset/Duration: Worse Quality of pain: Burning Pain Level: 3 Associated symptoms: Chest pain, Diarrhea. denies: Body/muscle aches, Nonproductive cough, Productive cough, Fever, Nausea, Vomiting, Shortness of breath, Sore throat Exacerbated by: Denies Relieved by: Denies Similar symptoms previously: Yes Recently seen / treated by doctor: Yes - Related Data Allergies/Adverse Reactions: No Known Allergies Allergy (Unverified 03/19/17 02:03) Past Medical History - General Information source: Patient - Social History Smoking Status: Current Every Day Smoker Chew tobacco use (# tins/day): No Frequency of alcohol use: None Drug Abuse: None Lives with: Family Family History: Reviewed & Not Pertinent Patient has suicidal ideation: No Patient has homicidal ideation: No - Medical History Medical History: Negative - Past Medical History Cardiac Medical History: Denies: Hx Heart Attack, Hx Hypertension Renal/ Medical History: Denies: Hx Peritoneal Dialysis Skin Medical History: Denies Hx Eczema Psychiatric Medical History: Denies: Hx Depression Past Surgical History: Reports: Hx Tubal Ligation - Immunizations Hx Diphtheria, Pertussis, Tetanus Vaccination: Yes Review of Systems - Review of Systems Constitutional: Recent illness - staph skin syndrome earlier this month. denies : Fever EENT: No symptoms reported Cardiovascular: Chest pain. denies: Syncope, Dizziness Respiratory: No symptoms reported. denies: Cough, Short of breath Gastrointestinal: Diarrhea. denies: Abdominal pain, Nausea, Vomiting, Black stools, Rectal bleeding Genitourinary: No symptoms reported. denies: Dysuria, Flank pain Female Genitourinary: No symptoms reported Musculoskeletal: No symptoms reported. denies: Back pain Skin: Rash Hematologic/Lymphatic: No symptoms reported Neurological/Psychological: No symptoms reported. denies: Headaches Physical Exam - Vital signs Vitals: Temp Pulse Resp BP Pulse Ox 98.3 F 93 16 119/75 98 04/16/17 19:57 04/16/17 19:57 04/16/17 19:57 04/16/17 19:57 04/16/17 19:57 - General General appearance: Appears well, Alert, Anxious In distress: None - HEENT Head: Normocephalic, Atraumatic Eyes: Normal Conjunctiva: Normal Nasal: Normal Mouth/Lips: Normal. No: Angioedema Mucous membranes: Normal Neck: Normal - Respiratory Respiratory status: No respiratory distress Chest status: Tender Breath sounds: Normal Chest palpation: Tender - Cardiovascular Rhythm: Regular Heart sounds: S1 appreciated, S2 appreciated Murmur: No - Abdominal Inspection: Normal Distension: No distension Bowel sounds: Normal Tenderness: Nontender Organomegaly: No organomegaly - Back Back: Normal, Nontender. No: CVA tenderness - Extremities General upper extremity: Normal inspection, Normal ROM General lower extremity: Normal inspection, Normal ROM - Neurological Neuro grossly intact: Yes Cognition: Normal Naeem Coma Scale Eye Opening: Spontaneous [place] Coma Scale Verbal: Oriented [place] Coma Scale Motor: Obeys Commands [place] Coma Scale Total: 15 - Psychological Associated symptoms: Anxious - Skin Skin Temperature: Warm Skin Moisture: Dry Skin Color: Erythema - Erythematous rash distributed to trunk, extremities, most concentrated to bilateral wrist and hand area. No peeling of skin to fingertips Skin irregularity: Erythema, Rash Location of irregularity: Other - Patient with scaling, cracked skin to the palms of hands and fingers Irregularity with: Tenderness, Inflammation. negative: Swelling, Warmth Course - Re-evaluation Re-evalutation: 04/16/17 21:[address] Garcia regarding patient presentation and diagnostic test results. Advises 2 week course of steroid medication, outpatient follow-up with primary doctor as well as dermatology and having patient finish her course of antibiotics as previously prescribed. Also agrees with plan to treat patient 's UTI. 04/16/17 22:44 Continues to complain of pruritus. Patient very anxious about what she feels like is acid draining around the posterior aspect of her scalp causing her head to get wet. Patient without any objective weeping skin lesions to scalp or neck area. Patient advised of exam findings of scalp. Discussed worsening symptoms that patient should return immediately for. Patient advised that a consultation will be placed with the rn case management to help assist patient getting a more timely follow-up as well as possible dermatology referral. 04/16/17 22:46 The patient has atypical chest pain as the patient's chest pain is not suggestive of pulmonary embolus, cardiac ischemia, aortic dissection, or other serious etiology. Given the extremely low risk of these diagnoses for the test in evaluation for these possibilities does not appear to be indicated at this time. Patient has been instructed to return if the symptoms worsen or change in any way. Patient's heart score of 1. - Vital Signs Vital signs: Temp Pulse Resp BP Pulse Ox 98.3 F 93 18 108/76 95 04/16/17 19:57 04/16/17 19:57 04/16/17 23:01 04/16/17 23:01 04/16/17 23:01 - Laboratory Result Diagrams: 04/16/17 20:43 04/16/17 20:43 Laboratory results interpreted by me: 04/16/17 04/16/17 04/16/17 20:43 20:43 20:57 Eosinophils % 6.9 H Chloride 108 H Creatine Kinase < 20 L Urine Nitrite POSITIVE H Ur Leukocyte Esterase SMALL H 04/16/17 23:33 Labs- Entire Visit 04/16/17 04/16/17 04/16/17 20:43 20:43 20:43 WBC 7.7 RBC 4.45 Hgb 13.7 Hct 40.6 MCV 91 MCH 30.9 MCHC 33.9 RDW 13.7 Plt Count 314 Seg Neutrophils % 43.4 Lymphocytes % 41.9 Monocytes % 7.4 Eosinophils % 6.9 H Basophils % 0.4 Absolute Neutrophils 3.3 Absolute Lymphocytes 3.2 Absolute Monocytes 0.6 Absolute Eosinophils 0.5 Absolute Basophils 0.0 Sodium 142.4 Potassium 4.4 Chloride 108 H Carbon Dioxide 24 Anion Gap 10 BUN 11 Creatinine 0.63 Est GFR ( Amer) > 60 Est GFR (Non-Af Amer) > 60 Glucose 89 Calcium 9.9 Total Bilirubin 0.4 Direct Bilirubin 0.3 Indirect Bilirubin Not Reportable Neonat Total Bilirubin Not Reportable AST 24 ALT 34 Alkaline Phosphatase 70 Creatine Kinase < 20 L CK-MB (CK-2) 0.27 Troponin I < 0.012 Total Protein 6.5 Albumin 4.1 Urine Color Urine Appearance Urine pH Ur Specific [place] Urine Protein Urine Glucose (UA) Urine Ketones Urine Blood Urine Nitrite Urine Bilirubin Urine Urobilinogen Ur Leukocyte Esterase Urine WBC (Auto) Urine RBC (Auto) Urine Bacteria (Auto) Squamous Epi Cells Auto Urine Mucus (Auto) Urine Ascorbic Acid 04/16/17 20:57 WBC RBC Hgb Hct MCV MCH MCHC RDW Plt Count Seg Neutrophils % Lymphocytes % Monocytes % Eosinophils % Basophils % Absolute Neutrophils Absolute Lymphocytes Absolute Monocytes Absolute Eosinophils Absolute Basophils Sodium Potassium Chloride Carbon Dioxide Anion Gap BUN Creatinine Est GFR ( Amer) Est GFR (Non-Af Amer) Glucose Calcium Total Bilirubin Direct Bilirubin Indirect Bilirubin Neonat Total Bilirubin AST ALT Alkaline Phosphatase Creatine Kinase CK-MB (CK-2) Troponin I Total Protein Albumin Urine Color YELLOW Urine Appearance SLIGHTLY HAZY Urine pH 5.0 Ur Specific [place] 1.010 Urine Protein NEGATIVE Urine Glucose (UA) NEGATIVE Urine Ketones NEGATIVE Urine Blood NEGATIVE Urine Nitrite POSITIVE H Urine Bilirubin NEGATIVE Urine Urobilinogen NEGATIVE Ur Leukocyte Esterase SMALL H Urine WBC (Auto) 69 Urine RBC (Auto) 1 Urine Bacteria (Auto) TRACE Squamous Epi Cells Auto 1 Urine Mucus (Auto) RARE Urine Ascorbic Acid NEGATIVE - Diagnostic Test Radiology reviewed: Reports reviewed Discharge - Discharge Clinical Impression: Skin rash, Chest tightness UTI (urinary tract infection) Qualifiers: Urinary tract infection type: site unspecified Hematuria presence: without hematuria Qualified Code(s): N39.0 - Urinary tract infection, site not specified Diarrhea Qualifiers: Diarrhea type: unspecified type Qualified Code(s): R19.7 - Diarrhea, unspecified Condition: Stable Disposition: HOME, SELF-CARE Instructions: Antihistamines ([facility]), Diarrhea, Nonspecific ([facility]), Use of Diphenhydramine, Rocephin ([facility]), Steroid Medication, Trimethoprim-Sulfa ([facility]), Urinary Tract Infection ([facility]) Additional Instructions: Return immediately for any new or worsening symptoms Followup with your primary care provider, call tomorrow to make a followup appointment Follow-up with the care in [facility] as planned. A rn case management (Michael Chaves) will attempt to get you a more timely follow-up appointment. You can call her office at [phone] follow up with dermatology for further evaluation, call tomorrow for an appointment Prescriptions: Famotidine [Pepcid 20 mg Tablet] 20 mg PO BID #12 tablet Hydroxyzine HCl [Atarax 25 mg Tablet] 1 - 2 tab PO QID PRN #20 tablet PRN Reason: Prednisone [Deltasone 5 mg Tablet] 5 mg PO ASDIR PRN #100 tablet PRN Reason: Sulfamethoxazole/Trimethoprim [Bactrim Ds Tablet] 1 each PO BID #10 tablet Forms: Follow-Up Laboratory Testing Referrals: [facility] [Provider Group] - Follow up tomorrow DUYEN BURKS DO [ACTIVE STAFF] - Follow up tomorrow
--- NOTE | 2017-04-16 22:50 | EKG REPORT ---
SEVERITY:- NORMAL ECG - SINUS RHYTHM : Confirmed by: Deborah Noonan 16-Apr-2017 22:49:52
[2017-04-16 23:06] VITALS: BP 108/76
== END 2017-04-16 23:05 | disposition home or self-care (01) ==
LOC: ER 19:43
DX: R21 Rash and other nonspecific skin eruption (principal); N39.0 Urinary tract infection, site not specified; F41.9 Anxiety disorder, unspecified; R07.89 Other chest pain; R19.7 Diarrhea, unspecified; F17.200 Nicotine dependence, unspecified, uncomplicated
CPT/HCPCS: 93005; 99284; 36415; 87086; 82553; 82550; 85025; 87088; 80053; 81001; 84484; 87186; 71010; 93010; J2930; S0028; J0696

== ENCOUNTER → 2017-04-17 | Outpatient (CLI) | payer OTHER | LOC: LAB 10:13 | PROVIDERS: ATTEND Nurse Practitioner Family | DX: R19.7 Diarrhea, unspecified (principal) | CPT/HCPCS: 87045; 87205; 87493 ==

== ENCOUNTER 2017-06-13 07:56 | Emergency (ER) | payer OTHER ==
--- NOTE | 2017-06-13 09:31 | ER Document Report ---
HPI - HPI Pain Level: 5 Notes: Patient is a 51-year-old female who presents ED complaining of a generalized rash intermittently since February. Patient states that she has been seen in the ED and treated with antibiotics and steroids which seemed to help, but the rash comes right back and has been worsening over the last month. Patient states that she has intense itching that is worse at nighttime. Patient states that her hands, finger webs, and forearms are the worst. Patient also has lesions to her trunk, but primarily her waist, lower legs, ankles, and feet. Patient has been admitted in the past for cellulitis and dermatitis not otherwise specified. Patient never had a formal diagnosis since February. Patient states that she has been seen by the [facility], and has a wait staff consult pending in September. Patient states that her itching is really bad so she needed to come to the ED. Patient has been using over-the- counter meds with no relief. She denies any drug allergies, recent illness, known insect bite, new medicines, exposure to new chemicals. Denies any headache, fever, neck pain, URI, sore throat, chest pain, palpitations, syncope , cough, shortness of breath, wheeze, dyspnea, abdominal pain, nausea/vomiting/ diarrhea, urinary retention, dysuria, hematuria, numbness/tingling, muscle paralysis/weakness. - ROS Notes: REVIEW OF SYSTEMS: CONSTITUTIONAL : Denies fever, chills, or sweats. Denies recent illness. EENT: Denies eye, ear, throat, or mouth pain or symptoms. Denies nasal or sinus congestion or discharge. Denies throat, tongue, or mouth swelling or difficulty swallowing. CARDIOVASCULAR: Denies chest pain. Denies palpitations or racing or irregular heart beat. Denies ankle edema. RESPIRATORY: Denies cough, cold, or chest congestion. Denies shortness of breath, difficulty breathing, or wheezing. GASTROINTESTINAL: Denies abdominal pain or distention. Denies nausea, vomiting , or diarrhea. Denies blood in vomitus, stools, or per rectum. Denies black, tarry stools. Denies constipation. GENITOURINARY: Denies difficulty urinating, painful urination, burning, frequency, blood in urine, or discharge. MUSCULOSKELETAL: Denies back or neck pain or stiffness. Denies joint pain or swelling. SKIN: see hpi NEUROLOGICAL: Denies dizziness or lightheadedness. Denies headache. Denies weakness or paralysis or loss of use of either side. Denies problems with gait or speech. Denies sensory loss, numbness, or tingling. Denies seizures. ALL OTHER SYSTEMS REVIEWED AND NEGATIVE. Dictation was performed using [employer] voice recognition software - CONSTITUTIONAL Constitutional: DENIES: Fever, Chills - REPRODUCTIVE Reproductive: DENIES: : Past Medical History - Social History Smoking Status: Current Every Day Smoker Chew tobacco use (# tins/day): No Frequency of alcohol use: None Drug Abuse: None Family History: Reviewed & Not Pertinent Patient has suicidal ideation: No Patient has homicidal ideation: No - Past Medical History Cardiac Medical History: Denies: Hx Heart Attack, Hx Hypertension Renal/ Medical History: Denies: Hx Peritoneal Dialysis Skin Medical History: Denies Hx Eczema Psychiatric Medical History: Denies: Hx Depression Past Surgical History: Reports: Hx Tubal Ligation - Immunizations Hx Diphtheria, Pertussis, Tetanus Vaccination: Yes Vertical Provider Document - CONSTITUTIONAL Agree With Documented VS: Yes Notes: PHYSICAL EXAMINATION: GENERAL: Well-appearing, well-nourished and in no acute distress. HEAD: Atraumatic, normocephalic. EYES: Pupils equal round and reactive to light, extraocular movements intact, sclera anicteric, conjunctiva are normal. ENT: EAC clear b/l. TM's intact b/l without erythema, fluid, or perforation. Nares patent and without discharge. oropharynx clear without exudates. No tonsilar hypertrophy or erythema. Moist mucous membranes. No sinus tenderness. NECK: Normal range of motion, supple without lymphadenopathy LUNGS: Breath sounds clear to auscultation bilaterally and equal. No wheezes rales or rhonchi. HEART: Regular rate and rhythm without murmurs, rubs, gallops. ABDOMEN: Soft, nontender, nondistended abdomen. No guarding, no rebound. No masses appreciated. Normal bowel sounds present. No CVA tenderness bilaterally. Musculoskeletal: FROM to passive/active. Strength 5+/5. Extremities: No cyanosis, clubbing, or edema b/l. Peripheral pulses 2+. Capillary refill less than 3 seconds. NEUROLOGICAL: Cranial nerves grossly intact. Normal speech, normal gait. Normal sensory, motor exams PSYCH: Normal mood, normal affect. SKIN: Lower legs, feet, ankles, and torso/waist line: small maculopapular lesions with scabbing and possible burrowing. No other pattern associated. Fingers/hands/webs/forearms: There are noted small maculopapular lesions similar to as above, but with lichenification and occ fissuring noted near the wrist b/l. Forearms/hands: the skin is erythemic and warm to the touch b/l, probable superimposed bacterial infection. No abscess, streaks, or purulent discharge. - INFECTION CONTROL TRAVEL OUTSIDE OF THE [place] IN LAST 30 DAYS: No - RESPIRATORY O2 Sat by Pulse Oximetry: 98 Course - Re-evaluation Re-evalutation: 06/13/17 10:14 Patient is an afebrile, well-hydrated, 51-year-old female who presents the ED with suspected scabies as well as a superimposed bacterial infection status post scratching to the forearms and hands bilaterally. I have a strong suspicion of scabies given her continued recurrence with a pruritic rash that is focused primarily to the fingers, hands, and forearms, but has progressed to the trunk, waistline, ankles, and feet as well as the lower legs. Patient has noted worsening symptoms in the evenings and at night and have been progressive even with antibiotics and steroid use. The skin lesions also strongly resemble typical scabies. Reviewed with Dr. Cummings who also eval'd the patient. We will send her home with a prescription for permethrin cream, Vistaril, and clindamycin. Thoroughly reviewed with the patient that she needs to be seen by a wait staff with ongoing/worsening symptoms. Recheck with your PCM in 3-5 days. Return to the ED with any worsening/concerning symptoms otherwise as reviewed discharge. Patient is in agreement. - Vital Signs Vital signs: Temp Pulse Resp BP Pulse Ox 97.8 F 105 H 22 H 131/90 H 98 06/13/17 08:01 06/13/17 08:01 06/13/17 08:01 06/13/17 08:01 06/13/17 08:01 Discharge - Discharge Clinical Impression: Scabies, Superimposed infection Condition: Stable Disposition: HOME, SELF-CARE Instructions: Cellulitis ([facility]), Scabies ([facility]) Additional Instructions: Keep the skin clean scabies precautions Wash with soap and water Tylenol/ibuprofen if needed Triple antibiotic ointment daily on any break in the skin Take medication as directed Monitor for any worsening symptoms Recheck with your PCM in 3-5 days Consider consult with Dermatology for ongoing/worsening symptoms Return to the ED with any worsening symptoms and/or development of fever, headache, chest pain, palpitations, syncope, shortness of breath, trouble breathing, abdominal pain, n/v/d, abscess, purulent discharge, red streaks, worsening swelling, or other worsening symptoms that are concerning to you. Prescriptions: Clindamycin HCl [Cleocin 300 mg Capsule] 300 mg PO QID #40 capsule Hydroxyzine Pamoate [Vistaril 50 mg Capsule] 50 mg PO TID #30 capsule Permethrin [Elimite] 60 gm TP ONCE PRN #1 cream..g. PRN Reason: Forms: Elevated Blood Pressure Referrals: DUYEN BURKS DO [ACTIVE STAFF] - Follow up in 1 week CHERISE LUCIO MD [Primary Care Provider] - Follow up in 3-5 days
[2017-06-13 09:49] VITALS: BP 116/67
[2017-06-13] MEDS ORDERED: HYDROXYZINE PAMOATE 25 MG CAPSULE (4 CAP/ER DISP) PO SCH (10:00)
== END 2017-06-13 09:49 | disposition home or self-care (01) ==
LOC: ER 07:56
DX: B86 Scabies (principal); L08.9 Local infection of the skin and subcutaneous tissue, unspecified; F17.200 Nicotine dependence, unspecified, uncomplicated
CPT/HCPCS: 99282; J3490